=== PATIENT | female | born 1945 | race Caucasian/White ===

== ENCOUNTER 2016-08-16 06:53 | Day surgery (SDC) | payer MEDICARE ==
[~2016-08-16] VITALS: Ht 167.6 cm
--- NOTE | 2016-08-18 08:09 | OR ---
ADMIT: 08/16/2016 RM/LOC: [facility] MR#: [id number] [id number] [address] [place] [address] Operative/Delivery Room Report SEX: F AGE: 71 : 1945 SURGERY DATE: 08/16/2016 SURGEON: Jeanine Guillen MD [place] COORDINATOR: None. PREOPERATIVE DIAGNOSES: 1. Lumbar disk degeneration. 2. Lumbosacral radiculopathy. POSTOPERATIVE DIAGNOSES: 1. Lumbar disk degeneration. 2. Lumbosacral radiculopathy. PROCEDURE PERFORMED: Bilateral L3-L4 and L4-L5 transforaminal steroid injection. INDICATIONS FOR PROCEDURE: The patient is a pleasant female with history of chronic low back pain with radicular symptoms, comes here for planned L3-L4 and L4-L5 transforaminal steroid injection. ANESTHESIA: Local without sedation. ESTIMATED BLOOD LOSS: Zero. COMPLICATIONS: None immediately evident. DESCRIPTION OF THE PROCEDURE: After the patient was seen in the preoperative area, vitals signs were taken. Prior to the procedure, the risks, benefits, and alternative therapies were discussed at length. Patient consent was obtained and updated. The patient was taken to the fluoroscopy suite and placed on the fluoroscopy table in the prone position. Pressure points were padded to comfort, monitors applied, and a timeout performed. The patient's lumbosacral area was then prepped and draped sterilely using ChloraPrep. C-arm fluoroscopy was then brought in to identify the transverse process of L3 and L4 on the right. Lidocaine 1%, approximately 2 mL, was used to anesthetize the skin and underlying subcutaneous tissue. A 3.5-inch curved- tip 22-gauge spinal needle then was entered and advanced to make contact with the inferomedial portion of the transverse process on the right. The needle was then worked off in a corkscrew method and placed into the uppermost portion of the neural foramina. A total of 2 mL of Isovue was instilled ADMIT: 08/16/2016 RM/LOC: [facility] MR#: [id number] [address] [address] [place] [address] Operative/Delivery Room Report SEX: F AGE: 71 : 1945 showing excellent epidural, as well as nerve root sheath, spread. The patient had reproduction of her typical pain. The patient then received 2 mL of 40 mg of Depo Medrol and 0.25% Marcaine plain. The procedure was then repeated on the left side. The patient tolerated the procedure well, had no complications, and was taken to the PACU. PLAN: The patient was examined after 20 minutes and had 80% reduction of pain. Discharge instructions were given, followup scheduled. 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 Jeanine Guillen MD/ wilian JOB #: [id number] CC: Jeanine Guillen, Attending Physician Varun Green, Family Physician
== END 2016-08-16 08:45 | disposition home or self-care (01) ==
LOC: SSS 06:53
DX: G89.29 Other chronic pain (principal); M51.17 Intervertebral disc disorders with radiculopathy, lumbosacral region; Z88.6 Allergy status to analgesic agent; Z88.1 Allergy status to other antibiotic agents; Z88.8 Allergy status to other drugs, medicaments and biological substances; Z79.899 Other long term (current) drug therapy